=== PATIENT | female | born 1980 | race Caucasian/White ===

== ENCOUNTER 2022-09-26 10:06 | Outpatient (CLI) | payer MEDICAID, SELFPAY ==
--- NOTE | 2022-09-26 10:33 | US_ITS ---
WS: [id number] US pelvic complete* [id number] HISTORY: MENORRHAGIA COMPARISON: None available. Transabdominal evaluation of the uterus and adnexa. Uterus: 7.3 cm x 3.9 cm x 3.3 cm. Normal size anteverted uterus. No fibroid or mass. Endometrium: 0.5 cm. Unremarkable. Right ovary: 2.4 cm x 1.1 cm x 1.9 cm. Normal size and vascularity, no cystic or solid masses. Left ovary: 3.0 cm x 2.8 cm x 1.8 cm. Normal size and vascularity, no cystic or solid masses. No free fluid in the cul-de-sac. US/US pelvic complete* [id number] IMPRESSION: Negative transabdominal pelvic ultrasound.
== END 2022-09-26 10:07 | disposition home or self-care (01) ==
LOC: RAD 10:12
PROVIDERS: PCP Internal Medicine; Visit Provider Nurse Practitioner Family
DX: N92.0 Excessive and frequent menstruation with regular cycle (principal)
CPT/HCPCS: 76856

== ENCOUNTER 2023-04-04 11:41 | Outpatient (CLI) | payer MEDICAID, SELFPAY ==
--- NOTE | 2023-04-04 11:46 | MM_ITS ---
WS: [id number] BILATERAL 2D DIGITAL SCREENING MAMMOGRAPHY WITH CAD CLINICAL INFORMATION: SCREENING HISTORY: Screening mammogram. No current complaints. COMPARISON: Baseline TECHNIQUE: Bilateral CC and MLO views. FINDINGS: The breasts are composed of heterogeneous fibroglandular density tissue, which can limit the detectio n of small underlying mass lesions. No suspicious mass, asymmetry, calcifications, or architectural d istortion. No evidence of malignancy. IMPRESSION: MM/[place] [id number] BI-RADS: 1-Negative FOLLOW UP: 1 Year Follow-up Recommend return to annual screening mammography.
== END 2023-04-04 11:42 | disposition home or self-care (01) ==
LOC: RAD 11:41
PROVIDERS: PCP Internal Medicine; Visit Provider Internal Medicine
DX: Z12.31 Encounter for screening mammogram for malignant neoplasm of breast (principal)
CPT/HCPCS: 77067

== ENCOUNTER 2023-08-17 14:18 | Emergency (ER) | payer MEDICAID, SELFPAY ==
[2023-08-17 14:26] VITALS: BP 126/86; PULSE 99; RESP 14; TEMP 36.8; O2SAT 100; BMI 27.7
[2023-08-17 14:30] LABS: Glucose Point of Care 63 mg/dL (70-110)
[2023-08-17 15:17] VITALS: O2SAT 98
[2023-08-17 15:21] LABS: Basophils % 0.3 %; Eosinophils % 0.5 %; Hematocrit 44.7 % (36-47); Lymphocytes # 1.5 10^3/uL (0.8-4.8); Lymphocytes % 17.5 %; Mean Corpuscular HGB Conc 34.7 g/dL (30-55); Mean Corpuscular Hemoglobin 31.8 pg (27-33); Mean Corpuscular Volume 91.6 fl (85-98); Mean Platelet Volume 8.8 fL (7.4-10.4); Monocytes # 0.4 10^3/uL (0.2-0.9); Monocytes % 4.1 %; Neutrophils # 6.69 10^3/uL (1.8-7.7); Neutrophils % 77.1 %; Nucleated Red Blood Cells % 0 %; Platelet Count 272 10^3/cmm (157-399); Red Blood Count 4.88 10^6/uL (3.85-5.65); Red Cell Distribution Width 12.1 % (12.1-15.1); White Blood Count 8.68 10^3/uL (3.29-11.43)
[2023-08-17 15:35] LABS: Ketone (Acetest) Serum Negative (Negative)
[2023-08-17 15:44] LABS: Alanine Aminotransferase 14 U/L (0-33); Albumin Level 4.4 g/dL (3.5-5.2); Alkaline Phosphatase 118 U/L (35-105); Blood Urea Nitrogen 16 mg/dL (6-20); Calcium 9.5 mg/dL (8.5-10.5); Carbon Dioxide 19 mmol/L (22-29); Chloride 102 mmol/L (98-107); Creatinine Clr Calc Pharmacy 76.7401; Globulin 3.4 g/dL (1.3-4.6); Glomerular Filtration Rate 78.7 mL/min (90-130); Glucose 105 mg/dL (65-115); Osmolality Calculated 286 mOsm/kg (285-295); Sodium 137 mmol/L (136-145); Total Bilirubin 0.2 mg/dL (0.15-1.2); Total Protein 7.8 g/dL (6.6-8.7)
[2023-08-17 15:53] VITALS: RESP 18; O2SAT 98
[2023-08-17 16:03] LABS: Anion Gap 20.2 (5-19); Aspartate Amino Transferase 16 U/L (0-32); Potassium 4.2 mmol/L (3.5-5.1)
[2023-08-17 17:01] LABS: Glucose Point of Care 143 mg/dL (70-110)
--- NOTE | 2023-08-17 17:12 | W.ED.RECABL ---
HPI - Recheck/Abnormal Lab/Rx General: Chief Complaint: Recheck/Abnormal Lab/Rx Stated Complaint: Low blood sugar , confusion Time Seen by Provider: 08/17/23 14:34 History of Present Illness: 42-year-old female presents emergency department with the family members. Family member states that she is a diabetic and woke up crying and really was mostly unresponsive and and able to make a complete sentence her family member provided her some syrup from some peaches after he checked her blood glucose level and found that it was 60. He states he rechecked it after he gave her the syrup from the peaches and it was 63. Patient became more alert and responsive and they came to the emergency department to have it reevaluated. Patient's blood sugar upon initial assessment was 63. She is awake alert and at her normal baseline per her family member. Review of Systems General: Reports: 10 or more systems reviewed and unremarkable except in HPI and below Const: Reports: fatigue Endo: Reports: excessive sweating Physical Exam Narrative: EXAM NARRATIVE: Constitutional: the patient appears well nourished and of normal development. Vital signs as documented. No acute distress at present. Alert and oriented-to person, place, time and situation. Head, eyes, ears, nose, mouth, throat: Normocephalic, atraumatic. Pupils-equal, round, reactive to light. No scleral icterus. Normal-appearing external ears. Normal appearing nasal turbinates, no drainage. No obvious oral lesions, posterior oropharynx without erythema or exudates. Neck: Supple, trachea is midline, no lymphadenopathy, no jugular venous distension, thyromegaly, or carotid bruits. Carotid upstrokes are brisk bilaterally. Lungs: clear to auscultation to all lung perez. Symmetrical rise and fall of chest, no obvious signs of increased work of breathing at present. Cardiac: Regular rate and rhythm, positive S1, S2. No murmurs, rubs or gallops that I can appreciate Abdomen: Soft, non-tender to palpation, normal active bowel sounds to all quadrants. No palpable masses, no organomegaly and abdominal bruits. Extremities: 2+ pulses in the upper extremities that are equal bilaterally, 2+ pulses in the lower extremities that are equal bilaterally. Non-edematous. Moves all extremities well, sensation to all extremities are noted. Skin: Warm, dry, intact. 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 Time: 17:19 Vital Signs: Vital signs: Vital Signs Temperature 98.3 F 08/17/23 14:26 Pulse Rate 99 08/17/23 14:26 Respiratory Rate 18 08/17/23 15:53 Blood Pressure 126/86 08/17/23 14:26 Pulse Oximetry 98 08/17/23 15:53 Oxygen Delivery Me thod Room Air 08/17/23 15:53 MDM - Recheck/Abnormal Lab/Rx Medical Decision Making Physical exam completed and documented I will obtain laboratory evaluation to include CBC and CMP to evaluate her electrolyte and hydration status. Given her hypoglycemia upon arrival and her history of diabetes and her recovery and improved mental status I will provide her by mouth orange juice and complex carbohydrate to include peanut butter. I have rechecked her blood glucose and it is at an appropriate level of 143 I had an extensive discussion with the patient and the family members regarding follow-up and the importance of monitoring by mouth intake to compensate for the amount of insulin and other hypoglycemic medications that the patient is taking. Medical Records I reviewed the patient's medical records. Lab Data I reviewed the patient's lab results. 08/17/23 15:15 08/17/23 15:15 Laboratory Results WBC 8.68 10^3/uL (3.29-11.43) 08/17/23 15:15 RBC 4.88 10^6/uL (3.85-5.65) 08/17/23 15:15 Hgb 15.50 g/dL (11.27-16.99) 08/17/23 15:15 Hct 44.7 % (36-47) 08/17/23 15:15 MCV 91.6 fl (85-98) 08/17/23 15:15 MCH 31.8 pg (27-33) 08/17/23 15:15 MCHC 34.7 g/dL (30-55) 08/17/23 15:15 RDW 12.1 % (12.1-15.1) 08/17/23 15:15 Plt Count 272 10^3/cmm (157-399) 08/17/23 15:15 MPV 8.8 fL (7.4-10.4) 08/17/23 15:15 Neut % (Auto) 77.1 % 08/17/23 15:15 Lymph % (Auto) 17.5 % 08/17/23 15:15 [place] % (Auto) 4.1 % 08/17/23 15:15 Eos % (Auto) 0.5 % 08/17/23 15:15 Baso % (Auto) 0.3 % 08/17/23 15:15 Neut # (Auto) 6.69 10^3/uL (1.8-7.7) 08/17/23 15:15 Lymph # (Auto) 1.5 10^3/uL (0.8-4.8) 08/17/23 15:15 [place] # (Auto) 0.4 10^3/uL (0.2-0.9) 08/17/23 15:15 Eos # (Auto) 0.0 10^3/uL (0.0-0.8) 08/17/23 15:15 Baso # (Auto) 0.0 10^3/uL (0.0-0.1) 08/17/23 15:15 Nucleated RBC % (auto) 0 % 08/17/23 15:15 Nucleated RBCs # 0.0 /100WBC 08/17/23 15:15 Sodium 137 mmol/L (136-145) 08/17/23 15:15 Potassium 4.2 mmol/L (3.5-5.1) 08/17/23 15:15 Chloride 102 mmol/L (98-107) 08/17/23 15:15 Carbon Dioxide 19 mmol/L (22-29) L 08/17/23 15:15 Anion Gap 20.2 (5-19) H 08/17/23 15:15 BUN 16 mg/dL (6-20) 08/17/23 15:15 Creatinine 0.8 mg/dL (0.5-0.9) 08/17/23 15:15 GFR Calculation 78.7 mL/min (90-130) L 08/17/23 15:15 Glucose 105 mg/dL (65-115) 08/17/23 15:15 POC Glucose 143 mg/dL (70-110) H 08/17/23 16:58 Calculated Osmolality 286 mOsm/kg (285-295) 08/17/23 15:15 Calcium 9.5 mg/dL (8.5-10.5) 08/17/23 15:15 Total Bilirubin 0.2 mg/dL (0.15-1.2) 08/17/23 15:15 AST 16 U/L (0-32) 08/17/23 15:15 ALT 14 U/L (0-33) 08/17/23 15:15 Alkaline Phosphatase 118 U/L (35-105) H 08/17/23 15:15 Total Protein 7.8 g/dL (6.6-8.7) 08/17/23 15:15 Albumin 4.4 g/dL (3.5-5.2) 08/17/23 15:15 Globulin 3.4 g/dL (1.3-4.6) 08/17/23 15:15 Serum Ketones Negative (Negative) 08/17/23 15:15 No radiology studies performed this visit Discharge Plan Discharge Patient Disposition: Home Clinical Impression: Diabetes mellitus with hypoglycemia Condition: Stable Prescriptions: No Action glyburide 2.5 mg tablet 2.5 mg PO DAILY Lantus Solostar U-100 Insulin 100 unit/mL (3 mL) insulin pen 16 unit SUBCUT BEDTIME medroxyprogesterone [Depo-Provera] 150 mg/mL suspension 150 mg IM .every 90 days Trulicity 0.75 mg/0.5 mL pen injector 0.75 mg SUBCUT Q7D Discharge Orders: Discharge ED (Routine); Ordered 08/17/23 Ordered By: Semaj Sanchez Referrals: Bobbi Kendall MD [Primary Care Provider] - Discharge Diet: Usual diet and Diabetic Discharge Activity: Resume usual activity Patient Instructions: Opioid Safety, Pain Management Activity Restrictions/Additional Instructions: Activity Restrictions/Additional Instructions: Thank you for choosing [facility] for your healthcare needs today. Please realize that you were seen in the Emergency Department and that we are providing you with an emergency medical screening exam and this may not be a complete and all inclusive of all the testing and or medical work-up that you may need to determine your ailment or severity of your illness. It is very important that you follow-up as instructed with your Primary care provider or Specialist for additional evaluation and to discuss your medical treatment plan. You may return to the Emergency Department should you have concerns or if your condition changes or worsens in any way. Coding Level of Care Code ED Advisory Intern for Jael Hickey
== END 2023-08-17 17:38 | disposition home or self-care (01) ==
PROVIDERS: Emergency Provider Internal Medicine; PCP Internal Medicine
DX: E11.649 Type 2 diabetes mellitus with hypoglycemia without coma (principal); Z79.85 Long-term (current) use of injectable non-insulin antidiabetic drugs; Z79.4 Long term (current) use of insulin
CPT/HCPCS: 36415; 36416; 80053; 82009; 82962; 85025; 99283

== ENCOUNTER 2024-12-08 12:38 | Outpatient (CLI) | payer MEDICAID, SELFPAY ==
--- NOTE | 2024-12-08 12:43 | MM_ITS ---
WS: [id number] BILATERAL SCREENING DIGITAL TOMOSYNTHESIS MAMMOGRAM WITH CAD HISTORY: SCREENING COMPARISON: 04/04/2023 Bilateral CC and MLO views with tomosynthesis and synthetic mammography submitted. Computer aided detection analyzed. Breast composition: The breasts are heterogeneously dense, which may obscure small masses. No suspicious masses, microcalcifications or architectural distortion. MM/MM scr BI tomosynthesis [id number] IMPRESSION: BI-RADS: 1 - Negative FOLLOW UP: 1 Year Follow-up
== END 2024-12-08 12:39 | disposition home or self-care (01) ==
LOC: RAD 12:39
PROVIDERS: PCP Internal Medicine; Visit Provider Internal Medicine
DX: Z12.31 Encounter for screening mammogram for malignant neoplasm of breast (principal)
CPT/HCPCS: 77063; 77067

== ENCOUNTER 2024-12-21 07:43 | Outpatient (CLI) | payer MEDICAID, SELFPAY ==
--- NOTE | 2024-12-21 07:47 | CT_ITS ---
WS: [id number] CT ABDOMEN PELVIS TECHNIQUE: Contrast-enhanced CT of the abdomen and pelvis with coronal and sagittal reformatted images. CLINICAL INFORMATION: LLQ ABDOMINAL PAIN COMPARISON: None. DLP: 334.[address] scans at [facility] use at least one of these dose optimization techniques: automated exposure control; mA and/or kV adjustment per patient size (includes targeted exams where dose is matched to clinical indication); or iterative reconstruction. FINDINGS: Marked urinary distention of the bladder which extends into the mid abdomen. Recommend correlation for bladder outlet obstruction. No significant bladder wall thickening. Displacement and crowding of the small bowel loops in the mid abdomen. Fatty liver. Normal portal vein and splenic vein. Adrenal glands are normal. Normal renal parenchymal enhancement. No hydronephrosis. Tiny esophageal hiatal hernia. Marked gaseous distention of the stomach with air-fluid level. Normal pancreatic parenchymal enhancement. Celiac and SMA are patent. Aortic calcification. Adrenal glands are normal. Normal renal parenchymal enhancement. No hydronephrosis. Mild fecal retention in the colon. No evidence of high-grade obstruction. No free fluid in the abdomen or pelvis. CT/CT abdomen pelvis w con* [id number] IMPRESSION: 1. Marked urinary distention of the bladder extending into the mid abdomen. Re commend correlation for bladder outlet obstruction. 2. Small esophageal hiatal hernia 3. Marked gaseous distention of the stomach with air-fluid level. Mild thicken ing of the duodenum compatible with duodenitis. No evidence of high-grade obstr uction. 4. Mild colonic constipation. 5. Fatty liver. 6. No other acute findings.
[2024-12-21] MEDS: iohexol 350 mg/mL 500 mL Btl (per mL) PO (09:03)
[2024-12-21] MEDS: iohexol 350 mg/mL 500 mL Btl (per mL) IV (09:03)
== END 2024-12-21 07:44 | disposition home or self-care (01) ==
LOC: RAD 07:44
PROVIDERS: PCP Internal Medicine; Visit Provider Internal Medicine
DX: N32.89 Other specified disorders of bladder (principal); K44.9 Diaphragmatic hernia without obstruction or gangrene; K29.80 Duodenitis without bleeding; K59.00 Constipation, unspecified; K76.0 Fatty (change of) liver, not elsewhere classified
CPT/HCPCS: 74177